=== PATIENT | female | born 1960 | race Caucasian/White ===

== ENCOUNTER → 2025-07-24 15:11 | Outpatient (CLI) | payer OTHER, SELFPAY ==
--- NOTE | 2025-07-24 15:14 | DI.MRI.S_ITS ---
PROCEDURE: MR THORACIC SPINE WO CON INDICATIONS: compression fracture TECHNIQUE: Noncontrast sagittal T1 spine echo and T2 fast spin echo, sagittal STIR, and T2 fast spin echo through the thoracic spine. COMPARISON: Outside Film, MR, MR THORACIC SPINE WITHOUT CONTRAST, 11/19/2024, 14:41. [facility], CR, XR THORACOLUMBAR SPINE 2 VIEWS, 03/13/2025, 9:24. FINDINGS: Image quality: Excellent. Alignment and Curvature: Mild scoliotic curvature. Bone Marrow: Multiple thoracic vertebral body compression fractures including T6, T7, T8, T10, T11, and T12. Minimal edema is associated with the T8 vertebral body compression fracture, which is new when compared to the MRI from 11/19/2024. The moderate T12 compression fracture at demonstrates increased loss of vertebral body height when compared to the prior MRI without residual edema. Additional levels do not appear significantly changed when compared to the prior exam. No significant retropulsion of osseous fragments is seen at any level. No suspicious marrow replacing mass. A benign hemangioma is seen in the L1 vertebral body. Modic type 2 degenerative lately changes are seen at T10-11. Spinal Cord: Visualized spinal cord is normal in size and signal. Paraspinous Soft Tissues: No paravertebral masses. There is grade 2-3 fatty infiltration of the paraspinous musculature. Miscellaneous: At least moderate narrowing of the spinal canal is partially included in the cervical spine at the C5-6 level. On axial images, the thoracic central canal and foramina appear widely patent at all scanned levels. IMPRESSION: 1. Mildly edematous moderate vertebral body compression fracture at T8 is new when compared to the MRI from 11/19/2024. 2. Increased loss of vertebral body height at T12 when compared to the prior MRI, without associated edema. 3. Additional multilevel thoracic vertebral body compression fractures do not appear significantly changed. 4. No retropulsion of osseous fragments. No significant spinal canal stenosis or neural foraminal narrowing in the thoracic spine. Approved by: Jayson Pascual M.D. on 07/24/2025 at 20:15
== END ==
LOC: MRI 15:14
PROVIDERS: PCP Nurse Practitioner; Referring Provider Orthopaedic Surgery Orthopaedic Surgery of the Spine; Visit Provider Orthopaedic Surgery Orthopaedic Surgery of the Spine
DX: S22.070G Wedge compression fracture of T9-T10 vertebra, subsequent encounter for fracture with delayed healing (principal); S22.080G Wedge compression fracture of T11-T12 vertebra, subsequent encounter for fracture with delayed healing
CPT/HCPCS: 72146